=== PATIENT | male | born 2005 | race Two or more races ===

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

== ENCOUNTER 2025-06-06 13:01 | Emergency (ER) | payer MEDICAID, SELFPAY ==
[2025-06-06 13:18] VITALS: BP 119/54; PULSE 57; RESP 16; TEMP 36.6; O2SAT 100; BMI 32.9
--- NOTE | 2025-06-06 13:20 | ED_ITS ---
HPI - Ear Problem General Chief complaint: Ear Problems Stated complaint: right ear infection / rash Time Seen by Provider: 06/06/25 13:18 Source: patient and family Mode of arrival: ambulatory Limitations: no limitations History of Present Illness ED Provider: Shellie lam aprn HPI Narrative: 20-year-old male with no known medical history here with complaints of right ear pain for 1 week. Patient denies any recent cough or cold symptoms. No ear drainage, tinnitus. Also reports that his penis is swollen. Patient reports that he used a latex condom last night and that after sexual intercourse he noticed some swelling and itching to his penis. He denies any known latex allergy. He denies any difficulty urinating. No testicular pain, penile discharge or urinary symptoms. No concern for STD. Related Data Previous Rx's ?Medication ?Instructions ?Recorded ibuprofen 600 mg tablet 600 mg PO Q6H PRN pain #30 t abs 11/27/23 acetaminophen 325 mg tablet 650 mg (2 x 325 mg) PO Q4H PRN 06/06/25 (Tylenol) pain #60 tabs ibuprofen 600 mg tablet 600 mg PO Q8H PRN pain #20 t abs 06/06/25 loratadine 10 mg tablet (Claritin) 10 mg PO DAILY PRN allergic 06/06/25 symptoms #30 tabs triamcinolone acetonide 55 mcg 2 spray intranasal FRAN Y #16.9 mL 06/06/25 nasal spray aerosol (Nasacort Allergy) Allergies Allergy/AdvReac Type Severity Reaction Status Date / Time No Known Allergies Allergy Verified 06/06/25 13:19 Review of Systems Review of Systems: Yes all other systems are reviewed and are negative Constitutional: Constitutional: Reports no additional constitutional complaints, Denies body ache(s), Denies chills, Denies fever(s), Denies headache(s) and Denies weakness Eyes: Eyes: Reports no additional eye complaints and Denies change in vision ENT: Reports system reviewed and no additional complaints, except as documented, Denies dizziness, Reports otalgia, Denies headache(s), Denies nasal congestion, Denies nasal discharge and Denies neck pain Cardiovascular: Cardiovascular: Reports no additional cardiovascular complaints, Denies chest pain, Denies leg edema and Denies dyspnea Respiratory: Respiratory: Reports no additional respiratory complaints, Denies cough and Denies dyspnea Gastrointestinal: Gastrointestinal: Reports no additional gastrointestinal complaints, Denies abdominal pain, Denies diarrhea, Denies nausea and Denies vomiting Genitourinary: Genitourinary: Denies urinary incontinence Musculoskeletal: Musculoskeletal: Reports no additional musculoskeletal complaints, Denies back pain, Denies arthralgias, Denies joint swelling, Denies neck pain, Denies numbness and Denies tingling Integumentary/Breasts: Skin/Breast: Reports system reviewed and no additional complaints, except as docu, Reports swelling and Denies rash Neurologic: Reports system reviewed and no additional complaints, except as documented, Denies Abnormal speech present, Denies dizziness, Denies headache(s), Denies numbness, Denies tingling and Denies weakness PMFSH Past Medical History Attestation statement: The following information was validated with the patient. Source: old records reviewed and nursing notes reviewed Social History Social History Advance Directives: No Advance Directives Information Provided: Yes Physical Exam Vital Signs: Vital Signs: Last Vital Signs Temp 97.8 F 06/06/25 13:39 Pulse 57 06/06/25 13:39 Resp 16 06/06/25 13:39 BP 119/54 L 06/06/25 13:39 Pulse Ox 100 06/06/25 13:39 O2 Del Method Room Air 06/06/25 13:39 BMI result Body Mass Index 32.9 Const: General: cooperative, healthy appearing, comfortable and no acute distress Orientation/consciousness: patient oriented x3 Limitations: no limitations HEENT: Head: Yes normal to inspection Ears: hearing grossly normal bilaterally, TM normal on the left, EAC's normal, mastoids normal, no periauricular adenopathy and TM abnormal (Right effusion) not erythematous General nose exam: Normal external nose present Face and sinus: Yes normal facial exam Mouth: Normal oral and palatal mucosa present Throat: Yes posterior oropharynx normal, Yes tonsils normal and Yes uvula midline Eyes: General: appearance normal, both eyes and all related structures Pupils: Equal, round and reactive pupils present Neck: Neck: Yes normal visual inspection, Yes full ROM, Yes no lymphadenopathy and Yes no meningeal signs Chest: Chest palpation & inspection: normal inspection of the chest Resp: Effort & Inspection: normal respiratory effort Auscultation: clear to auscultation bilaterally Cardio: Rate: regular rate Rhythm: regular rhythm Peripheral pulses: Peripheral pulses 2+ throughout GI: Inspection: Yes normal to inspection Palpation (GI): Soft to palpation and nontender Auscultation: normal bowel sounds : Other: Yuko GARCIA Mild swelling/redness to the shaft of the penis Penis: normal penis and circumcised Back/Spine/Pelvis: Thoracic/Lumbar Spine: thoracic and lumbar spine normal to inspection Skin: General skin exam: no rashes or lesions noted Neuro: General: patient oriented x3, no meningeal signs, no focal motor deficits and normal sensation to monofilament Cranial nerves: Yes Equal, round and reactive pupils present Cognition (Neuro): normal cognition Speech: No Abnormal speech present Gait exam (Neuro): Normal gait present Motor exam (neuro): 5/5 motor strength present throughout Extrem: General: Yes normal to inspection Medical Decision Making Medical Decision Making MDM Narrative: 20-year-old male with no known medical history here with complaints of right ear pain for 1 week. Patient denies any recent cough or cold symptoms. No ear drainage, tinnitus. Also reports that his penis is swollen. Patient reports that he used a latex condom last night and that after sexual intercourse he noticed some swelling and itching to his penis. He denies any known latex allergy. He denies any difficulty urinating. No testicular pain, penile discharge or urinary symptoms. No concern for STD. R inner ear effusion Will treat with claritin, nasacort, motrin/tylenol Mild swelling/redness to the shaft of the penis. No pain Likely latex allergy. Recommended avoid latex condoms. Request testing from PCP Differential Diagnosis Differential Diagnoses: The differential diagnosis associated with the presentation includes AOM, otitis externa, less likely mastoiditis, malignant otitis externa Latex allergy, low suspicion for fracture, STI Admission/Observation Consideration of admission/observation: Escalation of care including admission/o bservation considered Low suspician for malignant otitis externa or mastoiditis requiring CT imaging, ENT consultation and or transfer tertiary care center Independent Historian Clinical information obtained from an independent historian. History obtained from or confirmed by: Spouse Tests considered The following testing was considered but not selected: Low suspician for malignant otitis externa or mastoiditis requiring CT imaging, Prescription Management I considered prescription management with: Antibiotic Discharge Plan Discharge Clinical Impression: Acute middle ear effusion Patient Disposition: Home, Self-Care Instructions: Earache (ED) Prescriptions: New ibuprofen 600 mg tablet 600 mg PO Q8H PRN (Reason: pain) Qty: 20 0RF acetaminophen [Tylenol] 325 mg tablet 650 mg PO Q4H PRN (Reason: pain) Qty: 60 0RF triamcinolone acetonide [Nasacort Allergy] 55 mcg aerosol,spray 2 spray intranasal DAILY Qty: 16.9 0RF Rx Instructions: administer into each nostril loratadine [Claritin] 10 mg tablet 10 mg PO DAILY PRN (Reason: allergic symptoms) Qty: 30 0RF No Action ibuprofen 600 mg tablet 600 mg PO Q6H PRN (Reason: pain) Qty: 30 0RF Referrals: Physician,None [Primary Care Provider, Medical] Interventions: ED Discharge Assessment Last Done: 06/06/25 13:39 Discharge Date/Time: 06/06/25 13:40 Print Language: Spanish
[2025-06-06 13:39] VITALS: BP 119/54; PULSE 57; RESP 16; TEMP 36.6; O2SAT 100
== END 2025-06-06 13:40 | disposition home or self-care (01) ==
PROVIDERS: Emergency Provider Emergency Medicine
DX: H74.8X1 Other specified disorders of right middle ear and mastoid (principal); H92.01 Otalgia, right ear; N48.29 Other inflammatory disorders of penis
CPT/HCPCS: 99282; 99283